=== PATIENT | female | born 1955 | race Caucasian/White ===

== ENCOUNTER 2020-12-06 10:55 | Outpatient (CLI) | payer MEDICARE, SELFPAY ==
--- NOTE | 2020-12-06 11:04 | MM_ITS ---
WS: [id number] BILATERAL DIGITAL SCREENING MAMMOGRAPHY WITH CAD CLINICAL INFORMATION: SCREENING HISTORY: Screening mammogram. No current complaints. COMPARISON: TECHNIQUE: Bilateral CC and MLO views. FINDINGS: The breasts are composed of heterogeneous fibroglandular density tissue, which can limit the detectio n of small underlying mass lesions. Stable punctate calcifications left breast. Stable nodular breast tissue central right breast. No suspicious mass, asymmetry, calcifications, or architectural distort ion. No evidence of malignancy. MM/[place] [id number] IMPRESSION: BI-RADS: 2-Benign FOLLOW UP: 1 Year Follow-up Recommend return to annual screening mammography.
== END 2020-12-06 10:56 | disposition home or self-care (01) ==
LOC: RADSHAW 11:02
PROVIDERS: Family Provider Family Medicine; PCP Family Medicine; Visit Provider Family Medicine
DX: Z12.31 Encounter for screening mammogram for malignant neoplasm of breast (principal)
CPT/HCPCS: 77067

== ENCOUNTER 2021-03-05 12:16 | Outpatient (RCR) | payer MEDICARE, SELFPAY | END 2021-03-21 23:59 | disposition home or self-care (01) | LOC: SPT 12:16 | PROVIDERS: Family Provider Family Medicine; PCP Family Medicine; Referring Provider Orthopaedic Surgery; Visit Provider Orthopaedic Surgery | DX: Z47.1 Aftercare following joint replacement surgery (principal); Z96.651 Presence of right artificial knee joint | CPT/HCPCS: 97110; 97161 ==

== ENCOUNTER 2021-03-22 06:00 | Outpatient (RCR) | payer MEDICARE, SELFPAY | END 2021-04-21 23:59 | disposition home or self-care (01) | LOC: SPT 06:00 | PROVIDERS: Family Provider Family Medicine; PCP Family Medicine; Referring Provider Orthopaedic Surgery; Visit Provider Orthopaedic Surgery | DX: Z47.1 Aftercare following joint replacement surgery (principal); Z96.651 Presence of right artificial knee joint | CPT/HCPCS: 97110 ==

== ENCOUNTER 2022-08-19 11:21 | Outpatient (CLI) | payer MEDICARE, SELFPAY ==
--- NOTE | 2022-08-19 11:29 | MM_ITS ---
WS: [id number] BILATERAL SCREENING DIGITAL TOMOSYNTHESIS MAMMOGRAM WITH CAD HISTORY: SCREENING COMPARISON: 12/06/2020, 11/19/2018 Bilateral CC and MLO views with tomosynthesis and synthetic mammography submitted. Computer aided det ection analyzed. Breast composition: The breasts are heterogeneously dense, which may obscure small masses. No suspici ous masses, microcalcifications or architectural distortion. Benign calcifications central LEFT breas t. MM/[place] [id number] IMPRESSION: BI-RADS: 2-Benign FOLLOW UP: 1 Year Follow-up
== END 2022-08-19 11:22 | disposition home or self-care (01) ==
LOC: RAD 11:22
PROVIDERS: PCP Family Medicine; Visit Provider Family Medicine
DX: Z12.31 Encounter for screening mammogram for malignant neoplasm of breast (principal)
CPT/HCPCS: 77063; 77067

== ENCOUNTER 2024-04-06 11:10 | Observation (INO) | payer MEDICARE, OTHER, SELFPAY ==
[2024-04-06] VITALS (9 sets, daily range): BP systolic 132–164; BP diastolic 66–74; PULSE 60–73; RESP 14–20; TEMP 36.4–36.8; O2SAT 91–96; BMI 35.2
--- NOTE | 2024-04-06 11:11 | XRR_ITS ---
PROCEDURE INFORMATION: Exam: XR Chest Exam date and time: 04/06/2024 11:27 AM Age: 68 years old Clinical indication: Pain; Angina pectoris; Additional info: Cp TECHNIQUE: Imaging protocol: Radiologic exam of the chest. Views: 1 view. COMPARISON: No relevant prior studies available. FINDINGS: Lungs: Unremarkable. No consolidation. Pleural spaces: Unremarkable. No pleural effusion. No pneumothorax. Heart/Mediastinum: Unremarkable. No cardiomegaly. Bones/joints: Unremarkable. XR/XR chest 1V portable [id number] IMPRESSION: No acute findings.
--- NOTE | 2024-04-06 11:22 | ED_ITS ---
HPI - Chest Pain 2 General: Chief Complaint: Chest Pain Stated Complaint: Cp Time Seen by Provider: 04/06/24 11:12 Source: patient Mode of arrival: ambulatory Limitations: no limitations History of Present Illness: 68-year-old female states that she start ed having chest pain 30 minutes ago. States it is a pressure pain in the center of her chest that radiated to her neck while she is at rest. States she has had intermittent pain since then and rates her pain currently a 3 out of 10 denies any worse improving factors. No known history of heart disease does have hypertension she is not a smoker. Denies any vomiting or diarrhea or abdominal pain or cough. Associated symptoms: Deny abdominal pain, dyspnea, fever(s), nausea or vomiting Review of Systems 2 Const: Denies: fever(s), chills, body aches or change in appetite ENMT: Denies: throat pain or dental pain Card: Reports: chest pain Resp: Denies: dyspnea GI: Denies: abdominal pain, nausea, vomiting or diarrhea Musc: Denies: neck pain or back pain Skin/Breast: Denies: rash Neuro: Denies: headache(s) Physical Exam 2 Const: COMMON NORMALS: patient oriented x3 and healthy appearing HENMT: COMMON NORMALS: normocephalic and atraumatic HEAD & SCALP: n ormocephalic and atraumatic Eye: COMMON NORMALS: Equal, round and reactive pupils present and EOMs intact bilaterally PUPIL: Yes Equal, round and reactive pupils present Neck/C-Spine: COMMON NORMALS: full ROM and supple Chest: COMMONS NORMALS: normal inspection of the chest and normal palpation of entire chest wall Resp: COMMON NORMALS: normal respiratory effort, No retractions, No use of accessory muscles and clear to auscultation bilaterally AUSCULTATION: clear to auscultation bilaterally Cardio: COMMON NORMALS: regular rate, regular rhythm and No murmurs present (Cardio) RATE: regular rate RHYTHM: regular rhythm GI: COMMON NORMALS: Normal to inspection, nondistended, normoactive bowel sounds present, Soft to palpation, non-tender and no masses PALPATION: Yes Soft to palpation Extremity: COMMON NORMALS: normal to inspection and full ROM Neuro: COMMON NORMALS: patient oriented x3, moves all extremities and no focal motor deficits Psych: COMMON NORMALS: mental status grossly normal, Normal thought process present and cooperative THOUGHT PROCESS: Normal thought process present Skin: COMMON NORMALS: no rashes or lesions noted and no wounds GENERAL SKIN EXAM: no rashes or lesions noted Course 2 Vital Signs: Vital signs: Vital Signs Temperature 97.6 F 04/06/24 11:17 Pulse Rate 64 04/06/24 11:31 Respiratory Rate 16 04/06/24 11:31 Blood Pressure 155/68 04/06/24 11:31 Pulse Oximetry 96 04/06/24 11:31 Oxygen Delivery Me thod Room Air 04/06/24 11:31 MDM - Chest Pain Medical Decision Making Patient presents here with chest pain EKG shows no ST elevation does have some Q waves does have an elevated troponin at 25 I spoke to the hospitalist will admit for ACS rule out she is currently pain-free. Medical Records I reviewed the patient's medical records. Lab Data I reviewed the patient's lab results. 04/06/24 11:28 04/06/24 11:28 Radiology Impressions Chest X-Ray 04/06/24 11:11 IMPRESSION: No acute findings. Laboratory Results WBC 9.46 10^3/uL (3.29-11.43) 04/06/24 11:28 RBC 4.22 10^6/uL (3.85-5.65) 04/06/24 11:28 Hgb 13.60 g/dL (11.27-16.99) 04/06/24 11:28 Hct 39.8 % (36-47) 04/06/24 11:28 MCV 94.3 fl (85-98) 04/06/24 11:28 MCH 32.2 pg (27-33) 04/06/24 11:28 MCHC 34.2 g/dL (30-55) 04/06/24 11:28 RDW 14.0 % (12.1-15.1) 04/06/24 11:28 Plt Count 189 10^3/cmm (157-399) 04/06/24 11:28 MPV 10.9 fL (7.4-10.4) H 04/06/24 11:28 Neut % (Auto) 67.9 % 04/06/24 11:28 Lymph % (Auto) 20.1 % 04/06/24 11:28 Pershing % (Auto) 9.9 % 04/06/24 11:28 Eos % (Auto) 1.4 % 04/06/24 11:28 Baso % (Auto) 0.3 % 04/06/24 11:28 Neut # (Auto) 6.42 10^3/uL (1.8-7.7) 04/06/24 11:28 Lymph # (Auto) 1.9 10^3/uL (0.8-4.8) 04/06/24 11:28 Pershing # (Auto) 0.9 10^3/uL (0.2-0.9) 04/06/24 11:28 Eos # (Auto) 0.1 10^3/uL (0.0-0.8) 04/06/24 11:28 Baso # (Auto) 0.0 10^3/uL (0.0-0.1) 04/06/24 11:28 Nucleated RBC % (auto) 0 % 04/06/24 11:28 Nucleated RBCs # 0.0 /100WBC 04/06/24 11:28 PT 12.10 SECONDS (12.1-14.9) 04/06/24 11:28 INR 0.87 (0.8-1.2) 04/06/24 11:28 D-Dimer 0.39 ug/mLFEU (0-0.59) 04/06/24 11:28 Sodium 135 mmol/L (136-145) L 04/06/24 11:28 Potassium 3.6 mmol/L (3.5-5.1) 04/06/24 11:28 Chloride 99 mmol/L (98-107) 04/06/24 11:28 Carbon Dioxide 22 mmol/L (22-29) 04/06/24 11:28 Anion Gap 17.6 (5-19) 04/06/24 11:28 BUN 32 mg/dL (8-23) H 04/06/24 11:28 Creatinine 1.0 mg/dL (0.5-0.9) H 04/06/24 11:28 GFR Calculation 54.8 mL/min (90-130) L 04/06/24 11:28 Glucose 104 mg/dL (65-115) 04/06/24 11:28 Calculated Osmolality 287 mOsm/kg (285-295) 04/06/24 11:28 Calcium 8.7 mg/dL (8.5-10.5) 04/06/24 11:28 Total Bilirubin 0.4 mg/dL (0.15-1.2) 04/06/24 11:28 AST 22 U/L (0-32) 04/06/24 11:28 ALT 32 U/L (0-33) 04/06/24 11:28 Alkaline Phosphatase 59 U/L (35-105) 04/06/24 11:28 Troponin T Baseline 25 ng/L (0-10) H 04/06/24 11:28 Total Protein 6.5 g/dL (6.6-8.7) L 04/06/24 11:28 Albumin 3.8 g/dL (3.5-5.2) 04/06/24 11:28 Globulin 2.7 g/dL (1.3-4.6) 04/06/24 11:28 Lipase 19 U/L (13-60) 04/06/24 11:28 All radiology interpretation(s) finalized by discharge EKG Data EKG 1: I personally reviewed and interpreted this EKG as follows: EKG interpretation date: 04/06/24 EKG interpretation time: 11:15 Interpretation: nsr hr [address] elevat t wave inversion v1 qrs 105 qtc 430 Discharge Plan Discharge Condition: Stable Referrals: Becka Lama MD [Primary Care Provider] - Coding Level of Care Code ED Hand Shaker for Chg Mario
--- NOTE | 2024-04-06 11:35 | ECG_ITS ---
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 Measurements Intervals [place] Rate: 61 P: 47 LA: 205 QRS: -36 QRSD: 113 T: 44 QT: 448 QTc: 455 Interpretive Statements SINUS RHYTHM LEFT AXIS DEVIATION [QRS AXIS < -30] ANTEROSEPTAL MYOCARDIAL INFARCTION , OF INDETERMINATE AGE [40+ ms Q WAVE IN V1-V4] No previous ECG available for comparison Electronically Signed On 04-06-2024 21:28:57 CDT by Jessica Middleton M.D. [id number]
[2024-04-06 11:42] LABS: Basophils % 0.3 %; Eosinophils # 0.1 10^3/uL (0.0-0.8); Eosinophils % 1.4 %; Hematocrit 39.8 % (36-47); Lymphocytes # 1.9 10^3/uL (0.8-4.8); Lymphocytes % 20.1 %; Mean Corpuscular HGB Conc 34.2 g/dL (30-55); Mean Corpuscular Hemoglobin 32.2 pg (27-33); Mean Corpuscular Volume 94.3 fl (85-98); Mean Platelet Volume 10.9 fL (7.4-10.4); Monocytes # 0.9 10^3/uL (0.2-0.9); Monocytes % 9.9 %; Neutrophils # 6.42 10^3/uL (1.8-7.7); Neutrophils % 67.9 %; Nucleated Red Blood Cells % 0 %; Platelet Count 189 10^3/cmm (157-399); Red Blood Count 4.22 10^6/uL (3.85-5.65); White Blood Count 9.46 10^3/uL (3.29-11.43)
[2024-04-06] MEDS: aspirin 81 mg Chew Tablet 324 MG PO (11:43)
[2024-04-06 12:01] LABS: INR 0.87 (0.8-1.2)
[2024-04-06 12:03] LABS: Alanine Aminotransferase 32 U/L (0-33); Albumin Level 3.8 g/dL (3.5-5.2); Alkaline Phosphatase 59 U/L (35-105); Anion Gap 17.6 (5-19); Aspartate Amino Transferase 22 U/L (0-32); Blood Urea Nitrogen 32 mg/dL (8-23); Calcium 8.7 mg/dL (8.5-10.5); Carbon Dioxide 22 mmol/L (22-29); Chloride 99 mmol/L (98-107); Creatinine Clr Calc Pharmacy 57.8591; D Dimer 0.39 ug/mLFEU (0-0.59); Globulin 2.7 g/dL (1.3-4.6); Glomerular Filtration Rate 54.8 mL/min (90-130); Glucose 104 mg/dL (65-115); Lipase 19 U/L (13-60); Osmolality Calculated 287 mOsm/kg (285-295); Potassium 3.6 mmol/L (3.5-5.1); Sodium 135 mmol/L (136-145); Total Bilirubin 0.4 mg/dL (0.15-1.2); Total Protein 6.5 g/dL (6.6-8.7)
[2024-04-06 12:05] LABS: Troponin(5th) Baseline 25 ng/L (0-10)
--- NOTE | 2024-04-06 12:49 | P.HP_ITS ---
Providers/Chief Complaint 2 Primary Care Provider: Becka Lama MD Chief Complaint: Cp History of Present Illness Pleasant 68-year-old lady with history of hypertension on amlodipine and losartan, had an episode of chest pain about 10 years ago but otherwise denies cardiac history in herself, but does have cardiac history in her parents both home health and bypass surgery was done in the 70s, presented to the ER after an episode of chest pain lasting about 2 hours earlier today, she was at rest during that time. Feels she could not catch a deep breath. Denies cough or shortness of breath. Denies pain with movement or palpation. She is currently free of chest pain. In the ER she is found to have Q waves in V1 and V2. Baseline troponin is 25. Review of Systems 2 Const: Denies: fever(s), chills, body aches or malaise ENMT: Denies: throat pain Card: Reports: chest pain; Denies: edema, pre-syncope or dyspnea on exertion Resp: Denies: productive cough, change in phlegm color or hemoptysis GI: Denies: abdominal pain, nausea, vomiting, diarrhea, constipation, hematochezia or melena : Denies: flank pain, urinary frequency or hematuria Musc: Denies: back pain, joint swelling or joint redness Skin/Breast: Denies: rash or new lesions Neuro: Denies: headache(s), numbness in extremities, weakness in extremities, dizziness, confusion or seizure-like activity Medications/Allergies Home Medications Medication Instructions Recorded Confirmed Last Taken Type amlodipine 5 mg tablet 5 mg PO DAILY 04/06/24 04/06/24 04/06/24 History losartan 100 1 tab PO DAILY 04/06/24 04/06/24 04/06/24 History mg-hydrochlorothiazide 25 mg tablet Allergies Allergy/AdvReac Type Severity Reaction Status Date / Time No Known Allergies Allergy Verified 04/06/24 11:23 PFSH Acute 2 PFSH: Medical History (Updated 04/06/24 @ 15:42 by Claude Villafuerte MD) HTN (hypertension) Family History (Updated 04/06/24 @ 14:18 by Claude Villafuerte MD) Father Heart disease Mother Heart disease Social History (Updated 04/06/24 @ 14:18 by Claude Villafuerte MD) Smoking and tobacco/nicotine status: never used tobacco/nicotine Alcohol intake: current Alcohol intake frequency: 0-2 Drinks per Day Alcohol type: wine Substance/Drug Use: never Vitals/I&O/Wt Last Vital Signs Temp 97.6 F 04/06/24 11:17 Pulse 63 04/06/24 12:23 Resp 17 04/06/24 12:23 BP 162/74 04/06/24 12:23 Pulse Ox 94 04/06/24 12:23 O2 Del Method Room Air 04/06/24 12:23 Weight last 48 hrs Weight 92.986 kg Physical Exam 2 Const: COMMON NORMALS: patient oriented x3 and alert GENERAL APPEARANCE: c ooperative ORIENTATION/CONSCIOUSNESS: Yes awake HENMT: COMMON NORMALS: oropharynx normal Neck/C-Spine: COMMON NORMALS: no JVD Resp: COMMON NORMALS: normal respiratory effort and clear to auscultation bilaterally AUSCULTATION: clear to auscultation bilaterally Cardio: COMMON NORMALS: no JVD, regular rhythm, S1 normal heart sound present, S2 normal heart sound present and No murmurs present (Cardio) RHYTHM: regular rhythm HEART SOUNDS: S1 normal heart sound present and S2 normal heart sound present GI: COMMON NORMALS: Normal to inspection, nondistended, normoactive bowel sounds present, Soft to palpation and non-tender PALPATION: Yes Soft to palpation Extremity: COMMON NORMALS: no joint enlargement and no pedal edema Neuro: COMMON NORMALS: patient oriented x3 and moves all extremities S ENSORIUM/ORIENTATION: Yes alert Skin: COMMON NORMALS: no rashes or lesions noted GENERAL SKIN EXAM: no rashes or lesions noted Data 04/06/24 11:28 04/06/24 11:28 A&P Assessment and plan (1) Chest pain: Reviewed vitals, CBC, CMP, troponin, EKG, on my interpretation with Q waves in V1 and V2, reviewed ER note, discussed with ER provider. Discussed with patient and her , she is currently pain-free, but did have pain for about 2 hours, central radiating up to her neck, although it was at rest and did have some discomfort with deep breath. Troponin with mild elevation at 2.5 times upper normal limit. Chest x-ray is unremarkable. D-dimer unremarkable. Somewhat atypical chest pain but does have risk factors of coronary disease including hypertension, age, obesity, as well as first-degree relatives with both parents having bypass surgery. Heart score is 6. Assess for possible unstable angina. Complete troponin EKG series, monitor on telemetry for possible arrhythmia as a reason of her symptoms. Received anticoagulation with Lovenox, monitor for risk of bleeding, continuing aspirin 325 mg daily. Reassess blood counts. Further assessment with echocardiogram. Additionally discussed with her assessment with stress testing in the morning unless chest pain returns and persists or is worsening. Obtain lipid profile. Plan HTN: Monitor blood pressures. Continue amlodipine, losartan/HCTZ. Obesity: Follow-up with primary provider with regards to weight loss options. Attestations 2 Medical Necessity Statement*: Place in observation for additional assessment and management after episode of chest pain, possible unstable angina. With abnormal EKG, risk factors of coronary disease. Diagnoses Chest pain R07.9
[2024-04-06] MEDS: enoxaparin 100 mg/mL Syringe 90 MG SUBCUT (12:57)
--- NOTE | 2024-04-06 13:11 | ECG_ITS ---
[facility] Test Date: 2024-04-06 Pat Name: Natasha Sanchez Department: Room: Gender: Female Switcher: : 1955 Requested By: Marcelino Whitehead Order Number: [id number] Lino MD: Jessica Middleton M.D. Measurements Intervals [place] Rate: 61 P: 44 IN: 205 QRS: -42 QRSD: 103 T: 43 QT: 434 QTc: 439 Interpretive Statements SINUS RHYTHM LEFT AXIS DEVIATION [QRS AXIS < -30] MINIMAL VOLTAGE CRITERIA FOR LVH, CONSIDER NORMAL VARIANT [MEETS CRITERIA IN ONE OF: R(aVL), S(V1), R(V5), R(V5/V6)+S(V1)] ANTEROSEPTAL MYOCARDIAL INFARCTION , OF INDETERMINATE AGE [40+ ms Q WAVE IN V1-V4] Compared to ECG 04/06/2024 11:35:34 No significant changes Electronically Signed On 04-06-2024 21:38:05 CDT by Jessica Middleton M.D. [id number]
[2024-04-06 13:35] LABS: Troponin 5 2HR 23.42 ng/L (0-10); Troponin 5 2HR Delta -1.58 ABS# (0-10)
--- NOTE | 2024-04-06 13:48 | PC.NURSE ---
assumed care of patient at 1300 from Odalis Eason. Rounding with patient and she reports that she does not currently have any chest pain. Changed into a gown and allergy band placed. Pt amb to bathroom without difficulties.
[2024-04-06 15:39] LABS: Chol HDL Ratio 2.24 mg/dL (0.0-4.40); Cholesterol 186 mg/dL (0-200); HDL Cholesterol 83 mg/dL (60-100); LDL Cholesterol Calculated 85 mg/dL (50-129); Triglycerides 92 mg/dL (0-150); VLDL Cholestrol Calculation 18 mg/dL (0-30)
--- NOTE | 2024-04-06 15:44 | USCV_ITS ---
Natasha Sanchez Age: 68 Gender: F : 1955 Exam Date: 04/06/2024 17:03 Ordering Phys: Claude Villafuerte MD Technologist: CT Exam Location: [facility] [place] Indication: cp BP: / HR: Rhythm: Sinus Technical Quality: Adequate MEASUREMENTS (Male / Female) Normal Values FINDINGS Left Ventricle Normal left ventricular size, systolic function and wall thickness, with no regional wall motion abnormalities. Normal left ventricular wall thickness. Normal diastolic filling pattern. Left ventricular ejection fraction is estimated at 70 %. Right Ventricle The right ventricle is normal in size and function. Right Atrium The right atrium is normal in size. Left Atrium The left atrium is normal in size. Mitral Valve Structurally normal mitral valve without significant stenosis or prolapse. There is no mitral regurgitation. Aortic Valve Structurally normal aortic valve without significant sclerosis or stenosis. There is no aortic regurgitation. Tricuspid Valve Structurally normal tricuspid valve without significant stenosis or regurgitation. Pulmonic Valve Structurally normal pulmonic valve without significant stenosis. Mild pulmonary valve regurgitation. Pericardium Normal pericardium without effusion. Aorta Normal ascending aorta dimension. IVC The inferior vena cava appears normal. CONCLUSIONS Normal transthoracic echocardiogram. There are no prior echocardiogram studies to compare. Dr. Michael Baez MD (Electronically Signed) Final Date: 07 April 2024 08:18 S
--- NOTE | 2024-04-06 17:46 | ECG_ITS ---
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 Measurements Intervals [place] Rate: 64 P: 29 OR: 203 QRS: -43 QRSD: 100 T: 5 QT: 433 QTc: 447 Interpretive Statements SINUS RHYTHM LEFT AXIS DEVIATION [QRS AXIS < -30] MODERATE VOLTAGE CRITERIA FOR LVH, CONSIDER NORMAL VARIANT [MEETS CRITERIA IN ONE OF: R(aVL), S(V1), R(V5), R(V5/V6)+S(V1)] POSSIBLE ANTEROSEPTAL MYOCARDIAL INFARCTION , OF INDETERMINATE AGE [30 ms Q WAVE IN V1-V4] Compared to ECG 04/06/2024 13:11:20 No significant changes Electronically Signed On 04-06-2024 21:39:44 CDT by Jessica Middleton M.D. [id number]
[2024-04-06 18:28] LABS: Troponin 5 6HR 22.38 ng/L (0-10)
[2024-04-06 18:29] LABS: Troponin 5 6HR Delta -2.62 ng/L (0-12)
[2024-04-07] VITALS: BP 131/66; PULSE 68; RESP 15; TEMP 36.9; O2SAT 90
[2024-04-07 03:05] LABS: Basophils % 0.3 %; Eosinophils # 0.1 10^3/uL (0.0-0.8); Eosinophils % 0.8 %; Hematocrit 40.6 % (36-47); Lymphocytes % 27.4 %; Mean Corpuscular HGB Conc 33.5 g/dL (30-55); Mean Corpuscular Hemoglobin 32.1 pg (27-33); Mean Corpuscular Volume 95.8 fl (85-98); Mean Platelet Volume 10.7 fL (7.4-10.4); Monocytes # 0.6 10^3/uL (0.2-0.9); Neutrophils # 4.59 10^3/uL (1.8-7.7); Neutrophils % 63.1 %; Nucleated Red Blood Cells % 0 %; Platelet Count 182 10^3/cmm (157-399); Red Blood Count 4.24 10^6/uL (3.85-5.65); White Blood Count 7.27 10^3/uL (3.29-11.43)
[2024-04-07 03:28] LABS: Blood Urea Nitrogen 26 mg/dL (8-23); Calcium 9.1 mg/dL (8.5-10.5); Carbon Dioxide 24 mmol/L (22-29); Chloride 104 mmol/L (98-107); Glomerular Filtration Rate 54.8 mL/min (90-130); Glucose 118 mg/dL (65-115); Osmolality Calculated 296 mOsm/kg (285-295); Sodium 140 mmol/L (136-145)
[2024-04-07 04:00] VITALS: BP 130/65; PULSE 65; RESP 15; TEMP 36.6; O2SAT 92
[2024-04-07 07:32] VITALS: BP 130/68; PULSE 67; RESP 19; TEMP 36.6; O2SAT 92
[2024-04-07 08:38] VITALS: BP 136/69
[2024-04-07] MEDS: losartan 50 mg Tablet 100 MG PO (08:38)
[2024-04-07] MEDS: aspirin 325 mg Tablet PO (08:38)
[2024-04-07] MEDS: amlodipine 5 mg Tablet PO (08:38)
[2024-04-07] MEDS: hydroCHLOROthiazide 25 mg Tablet PO (08:38)
--- NOTE | 2024-04-07 09:33 | PC.CHAP ---
Pastoral Care Encounter/Spiritual Assessment Type of Contact [] Declined foundation stage teacher visit [] Patient/Family/Request visit [] Outpatient visit [] Follow-up visit [] Physician referral [] Code/Alert [x] Routine visit [] Staff referral [] Actively dying [] Patient sleeping [] Family support [] [] Out of room [] Palliative care [] [] Receiving care in room [] Pre-surgical visit [] Trauma [] Long length of stay [] ICU visit [] Other: Relational/Emotional Strength [x] Patient feels connected with others/family/visitors/staff [] Distress [] Loneliness/isolation [] Abandonment Spirituality of Patient [x] Person of Xenia [] Attends Anabaptism of their Xenia [x] Believes in Prayer [] Reads Bible or Hindu materials [] There are Spiritual issues to be addressed Coverer Interventions [x] Prayer [x] Active listening [] Non-anxious presence [x] Spiritual/emotional support [] Crisis/trauma care [] Spiritual counseling [] Bereavement support [] Provided bereavement packet [] Provided Bible/devotional materials [] Provided toy/stuffed animal, coloring book to patient or family member [] Provided Communion [] Anointing/[place] [] Salvation [x] Completed spiritual assessment [] Other: Impact on Illness or Injury [] Angry [] Fearful [] Anxious [] Often cries [] Exhaustion [] Unable to work [] Unable to attend religion [] Unable to walk/stand [] Unable to read [] Unable to drive [] Unable to eat/drink [] Unable to sleep [] Unable to be with family [] Patient intubated [] Other: Summary Time spent with patient 5 min
[2024-04-07 11:26] VITALS: BP 129/77; PULSE 69; RESP 22; O2SAT 90
--- NOTE | 2024-04-07 11:52 | P.DS_ITS ---
Discharge Providers Date of Admission: 04/06/24 14:28 Date of Discharge: April 07, 2024 Attending Provider at Admission: Claude Villafuerte Attending Provider at Discharge: Claude Villafuerte Primary Care Provider: Becka Lama MD Diagnoses at Discharge Discharge Diagnosis (1) Chest pain: Status: Acute Reason for Visit Reason for Visit: Cp Hospital Course Hospital Course 68-year-old lady with history of hypertension, obesity, family history of coronary disease presented after an episode of 2 hours of central chest pain radiating to her neck earlier yesterday while at rest. Her chest x-ray was unremarkable, D-dimer normal, she did not have recurrence while monitoring in the hospital with cardiac telemetry, underwent echocardiogram which was normal. She was started on aspirin, statin, he is feeling well today. Could not have her stress test done today, as she is doing well she prefers to return for it as outpatient. Stress test is requested. Please follow-up. Continue to optimize cardiovascular risk factors, hypertension, assist her with weight control. Physical Exam Const: COMMON NORMALS: patient oriented x3 and alert GENERAL APPEARANCE: cooperative ORIENTATION/CONSCIOUSNESS: Yes awake HENMT: COMMON NORMALS: oropharynx normal Neck/C-Spine: COMMON NORMALS: no JVD Resp: COMMON NORMALS: normal respiratory effort and clear to auscultation bilaterally AUSCULTATION: clear to auscultation bilaterally Cardio: COMMON NORMALS: no JVD, regular rhythm, S1 normal heart sound present, S2 normal heart sound present and No murmurs present (Cardio) RHYTHM: regular rhythm HEART SOUNDS: S1 normal heart sound present and S2 normal heart sound present GI: COMMON NORMALS: Normal to inspection, nondistended, normoactive bowel sounds present, Soft to palpation and non-tender PALPATION: Yes Soft to palpation Extremity: COMMON NORMALS: no joint enlargement and no pedal edema Neuro: COMMON NORMALS: patient oriented x3 and moves all extremities SENSORIUM/ORIENTATION: Yes alert Skin: COMMON NORMALS: no rashes or lesions noted GENERAL SKIN EXAM: no rashes or lesions noted Discharge Data Studies Completed and Pending Completed Studies During Hospitalization Category Date Time Status XR chest 1V portable [id number] Stat Exams 04/06/24 11:11 Completed CV. echo complete* [id number] Routine Ultrasound 04/06/24 15:44 Completed Pending at discharge Category Date Time Status Cardiac Stress Test MIBI [Sestamibi Stress Test Request Exams 04/07/24 09:28 Ordered ] Routine Basic Metabolic Panel AM LABS Lab 04/08/24 04:00 Ordered Basic Metabolic Panel AM LABS Lab 04/09/24 04:00 Ordered Complete Blood Count w/Auto AM LABS Lab 04/08/24 04:00 Ordered Complete Blood Count w/Auto AM LABS Lab 04/09/24 04:00 Ordered NM joe perf SPECT r/s* [id number] Routine Nuc Med 04/08/24 09:28 Ordered Radiology Impressions Chest X-Ray 04/06/24 11:11 IMPRESSION: No acute findings. Laboratory Results WBC 7.27 10^3/uL (3.29-11.43) 04/07/24 02:46 RBC 4.24 10^6/uL (3.85-5.65) 04/07/24 02:46 Hgb 13.60 g/dL (11.27-16.99) 04/07/24 02:46 Hct 40.6 % (36-47) 04/07/24 02:46 MCV 95.8 fl (85-98) 04/07/24 02:46 MCH 32.1 pg (27-33) 04/07/24 02:46 MCHC 33.5 g/dL (30-55) 04/07/24 02:46 RDW 14.0 % (12.1-15.1) 04/07/24 02:46 Plt Count 182 10^3/cmm (157-399) 04/07/24 02:46 MPV 10.7 fL (7.4-10.4) H 04/07/24 02:46 Neut % (Auto) 63.1 % 04/07/24 02:46 Lymph % (Auto) 27.4 % 04/07/24 02:46 [place] % (Auto) 8.0 % 04/07/24 02:46 Eos % (Auto) 0.8 % 04/07/24 02:46 Baso % (Auto) 0.3 % 04/07/24 02:46 Neut # (Auto) 4.59 10^3/uL (1.8-7.7) 04/07/24 02:46 Lymph # (Auto) 2.0 10^3/uL (0.8-4.8) 04/07/24 02:46 [place] # (Auto) 0.6 10^3/uL (0.2-0.9) 04/07/24 02:46 Eos # (Auto) 0.1 10^3/uL (0.0-0.8) 04/07/24 02:46 Baso # (Auto) 0.0 10^3/uL (0.0-0.1) 04/07/24 02:46 Nucleated RBC % (auto) 0 % 04/07/24 02:46 Nucleated RBCs # 0.0 /100WBC 04/07/24 02:46 PT 12.10 SECONDS (12.1-14.9) 04/06/24 11:28 INR 0.87 (0.8-1.2) 04/06/24 11:28 D-Dimer 0.39 ug/mLFEU (0-0.59) 04/06/24 11:28 Sodium 140 mmol/L (136-145) 04/07/24 02:46 Potassium 4.0 mmol/L (3.5-5.1) 04/07/24 02:46 Chloride 104 mmol/L (98-107) 04/07/24 02:46 Carbon Dioxide 24 mmol/L (22-29) 04/07/24 02:46 Anion Gap 16.0 (5-19) 04/07/24 02:46 BUN 26 mg/dL (8-23) H 04/07/24 02:46 Creatinine 1.0 mg/dL (0.5-0.9) H 04/07/24 02:46 GFR Calculation 54.8 mL/min (90-130) L 04/07/24 02:46 Glucose 118 mg/dL (65-115) H 04/07/24 02:46 Calculated Osmolality 296 mOsm/kg (285-295) H 04/07/24 02:46 Calcium 9.1 mg/dL (8.5-10.5) 04/07/24 02:46 Total Bilirubin 0.4 mg/dL (0.15-1.2) 04/06/24 11:28 AST 22 U/L (0-32) 04/06/24 11:28 ALT 32 U/L (0-33) 04/06/24 11:28 Alkaline Phosphatase 59 U/L (35-105) 04/06/24 11:28 Troponin T Baseline 25 ng/L (0-10) H 04/06/24 11:28 Troponin T 120 Minute 23.42 ng/L (0-10) H 04/06/24 13:00 Delta Troponin T -1.58 ABS# (0-10) L 04/06/24 13:00 Troponin T Hi Sens 6Hr 22.38 ng/L (0-10) H 04/06/24 17:42 Troponin T Hi Sens 6Hr Delta -2.62 ng/L (0-12) L 04/06/24 17:42 Total Protein 6.5 g/dL (6.6-8.7) L 04/06/24 11:28 Albumin 3.8 g/dL (3.5-5.2) 04/06/24 11:28 Globulin 2.7 g/dL (1.3-4.6) 04/06/24 11:28 Triglycerides 92 mg/dL (0-150) 04/06/24 11:28 Cholesterol 186 mg/dL (0-200) 04/06/24 11:28 LDL Cholesterol, Calc 85 mg/dL (50-129) 04/06/24 11:28 Total VLDL Cholesterol 18 mg/dL (0-30) 04/06/24 11:28 HDL Cholesterol 83 mg/dL (60-100) 04/06/24 11:28 Cholesterol/HDL Ratio 2.24 mg/dL (0.0-4.40) 04/06/24 11:28 Lipase 19 U/L (13-60) 04/06/24 11:28 Vitals Last Vital Signs Temp 97.8 F 04/07/24 07:32 Pulse 69 04/07/24 11:26 Resp 22 H 04/07/24 11:26 BP 129/77 04/07/24 11:26 Pulse Ox 90 04/07/24 11:26 O2 Del Method Room Air 04/07/24 11:26 Discharge Plan Discharge Patient Disposition: Home Condition: Stable Prescriptions: New aspirin 81 mg capsule 81 mg PO DAILY Qty: 90 0RF atorvastatin 40 mg tablet 40 mg PO QPM Qty: 90 0RF Continued amlodipine 5 mg tablet 5 mg PO DAILY losartan-hydrochlorothiazide 100-25 mg tablet 1 tab PO DAILY Discharge Orders: Discharge Order (Routine); Ordered 04/07/24 Ordered By: Claude Villafuerte Other Ambulatory Orders: Sestamibi Stress Test Request (Routine) Timeframe: 1 Day Facility: [facility] - Location: Cardiac Diagnostic Laboratory Ordered By: Claude Villafuerte Referrals: Becka Lama MD [Primary Care Provider] - 4-7 days Discharge Diet: Cardiac Activity Restrictions/Additional Instructions: Follow-up with your primary doctor for reassessment after episode of chest pain, Q waves in V1, V2, suspected coronary disease. Please complete stress test, discuss results with your primary provider. You are started on aspirin and cholesterol medication, watch out for any bleeding with aspirin, avoid injury, watch for any muscle pain or weakness which could be a rare side effect of atorvastatin, follow-up with your primary doctor. Seek medical attention in case of any recurrence or new concerning symptoms. Discharge Attestations Time Spent in Discharge Care*: greater than 30 min Quality Metrics Clinical Quality Measures [ No reported AMI, CVA or VTE this stay] Coding Level of Care Code 39088 Total time (in minutes) for Discharge: 40 Diagnoses Chest pain R07.9
[2024-04-07 12:02] VITALS: BP 129/77; PULSE 69; RESP 22; O2SAT 90
== END 2024-04-07 12:31 | disposition home or self-care (01) ==
LOC: ER 12:23 → CSU 14:28
PROVIDERS: Admitting Provider Internal Medicine; Emergency Provider Emergency Medicine; PCP Family Medicine; Visit Provider Internal Medicine
DX: R07.9 Chest pain, unspecified (principal); I10 Essential (primary) hypertension; E66.9 Obesity, unspecified; Z68.35 Body mass index [BMI] 35.0-35.9, adult; Z82.49 Family history of ischemic heart disease and other diseases of the circulatory system
CPT/HCPCS: 36415; 71045; 80048; 80053; 80061; 83690; 84484; 85025; 85378; 85610; 93005; 93306; 96372; 99285; G0378; J1650

== ENCOUNTER 2024-05-25 08:27 | Outpatient (CLI) | payer MEDICARE, OTHER, SELFPAY ==
[2024-05-25 08:41] VITALS: BMI 34.3
--- NOTE | 2024-05-25 08:41 | ECG_ITS ---
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 Interpretive Statements NAME OF STUDY: LEXISCAN SESTAMIBI STRESS TEST INDICATION: [Chest Pain, CAD risk, ] Procedure: At the baseline, the blood pressure was 129/59 mmHg with a heart rate of 61 bpm. The electrocardiogram showed normal sinus rhythm, normal axis with normal ST and T's. The Lexiscan was infused over a period of 20 seconds. A total of 0.4 mg of Lexiscan was infused. The stress phase was continued for a total of 5 minutes. Heart rate was at the end of stress phase was 76 bpm and a blood pressure of 121/49 mmHg. The EKG at the peak infusion revealed normal sinus rhythm with no significant ST-T wave changes. Sestamibi was injected 20 seconds after the Lexiscan infusion. Blood pressure at the end of recovery phase was 112/50 mmHg with a heart rate of 73bpm. Conclusion: 1. Normal EKG response to Lexiscan infusion 2. No Lexiscan induced chest pain or cardiac arrhythmia. 3. Normal blood pressure and heart rate response. 4. Sestamibi/sestamibi perfusion scan pending; see separate report. Electronically Signed On 05-26-2024 11:57:16 CDT by Darci Kohli M.D. [email or web address]
--- NOTE | 2024-05-25 08:42 | NMCV_ITS ---
NM joe perf SPECT r/s* [id number] Natasha Sanchez Age: 69 Gender: F : 1955 Exam Date: 05/25/2024 08:42 Ordering Phys: Claude Villafuerte MD Technologist: SERVANDO Siddiqi Exam Location: [facility] Indications: CP, CAD STRESS TEST [facility] IMAGE PROTOCOL Rest/Stress 1 Lexiscan Day Radiopharmaceutical Dose (mCi) Administration Site Administered by Rest: Tc-99m 11.0 IV SERVANDO Siddiqi Sestamibi Stress:Tc-99m 32.8 IV SERVANDO Siddiqi Sestamibrenda Rest: 25-May-2024 60 Discovery 630 Stress: 25-May-2024 30 Discovery 630 0.4mg Lexiscan. Images obtained in supine and prone position. SPECT RESULTS Technical Quality: Good Raw Data Analysis: Breast attenuation Image Corrections: No attenuation or motion correction applied Summed Stress Score: 8 Summed Rest Score: 8 Summed Difference Score: 0 PERFUSION FINDINGS Medium sized areas of fixed perfusion defect seen in apical, apical septal and apical lateral gutiérrez. 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 No evidence of ischemia. FUNCTIONAL RESULTS (calculated via Gated SPECT) Stress Image LV EF (%): 83 Stress EDV (mL):80 TID: 1.14 Stress ESV (mL):14 FUNCTIONAL FINDINGS: There is normal left ventricular systolic function. IMPRESSIONS 1. Medium sized area of prior infarct seen in the LAD and left circumflex artery territories. 2. LV systolic function is normal Darci Kohli MD (Electronically Signed) Final Date: 25 May 2024 12:10 S
[2024-05-25] MEDS: regadenoson 0.4 Mg/5 ml Syringe IVP (10:30)
[2024-05-25 10:39] VITALS: BP 112/50; PULSE 74
== END 2024-05-25 08:28 | disposition home or self-care (01) ==
PROVIDERS: PCP Family Medicine; Visit Provider Internal Medicine
DX: R07.9 Chest pain, unspecified (principal); R94.39 Abnormal result of other cardiovascular function study
CPT/HCPCS: 36415; 78452; 93017; 96374; A9500; J2785

== ENCOUNTER → 2024-06-24 11:45 | Outpatient (BNVA) | payer MEDICARE, OTHER, SELFPAY | PROVIDERS: PCP Family Medicine; Referring Provider Family Medicine; Visit Provider Internal Medicine Cardiovascular Disease | DX: I49.8 Other specified cardiac arrhythmias (principal); R07.9 Chest pain, unspecified; I21.9 Acute myocardial infarction, unspecified | CPT/HCPCS: 93005; 99204 ==

== ENCOUNTER 2024-11-20 06:30 | Outpatient (RCR) | payer MEDICARE, OTHER, SELFPAY | END 2024-12-20 23:59 | disposition home or self-care (01) | LOC: SPT 06:30 | PROVIDERS: PCP Family Medicine; Visit Provider Registered Nurse | DX: Z47.1 Aftercare following joint replacement surgery (principal); Z96.651 Presence of right artificial knee joint | CPT/HCPCS: 97110; 97150; 97161 ==

== ENCOUNTER 2024-12-21 05:00 | Outpatient (RCR) | payer MEDICARE, OTHER, SELFPAY | END 2025-01-05 11:28 | disposition home or self-care (01) | LOC: SPT 05:00 | PROVIDERS: PCP Family Medicine; Visit Provider Registered Nurse | DX: Z47.1 Aftercare following joint replacement surgery (principal); Z96.651 Presence of right artificial knee joint | CPT/HCPCS: 97110 ==

== ENCOUNTER → 2025-02-07 11:04 | Outpatient (BNVA) | payer MEDICARE, OTHER, SELFPAY | PROVIDERS: PCP Family Medicine; Visit Provider Internal Medicine Cardiovascular Disease | DX: R07.9 Chest pain, unspecified (principal); I10 Essential (primary) hypertension; E78.5 Hyperlipidemia, unspecified; M79.89 Other specified soft tissue disorders; I50.9 Heart failure, unspecified | CPT/HCPCS: 99214 ==

== ENCOUNTER 2025-02-28 16:20 | Outpatient (RCR) | payer MEDICARE, OTHER, SELFPAY | END 2025-03-21 23:59 | disposition home or self-care (01) | LOC: SPT 16:20 | PROVIDERS: Visit Provider Orthopaedic Surgery | DX: Z47.1 Aftercare following joint replacement surgery (principal); Z96.652 Presence of left artificial knee joint | CPT/HCPCS: 97110; 97161 ==

== ENCOUNTER 2025-03-22 05:00 | Outpatient (RCR) | payer MEDICARE, OTHER, SELFPAY | END 2025-04-21 23:59 | disposition home or self-care (01) | LOC: SPT 05:00 | PROVIDERS: Visit Provider Orthopaedic Surgery | DX: Z47.1 Aftercare following joint replacement surgery (principal); Z96.652 Presence of left artificial knee joint | CPT/HCPCS: 97110 ==

== ENCOUNTER 2025-04-22 05:00 | Outpatient (RCR) | payer MEDICARE, OTHER, SELFPAY | END 2025-05-12 13:47 | disposition home or self-care (01) | LOC: SPT 05:00 | PROVIDERS: PCP Family Medicine; Visit Provider Orthopaedic Surgery | DX: Z47.1 Aftercare following joint replacement surgery (principal); Z96.652 Presence of left artificial knee joint | CPT/HCPCS: 97110 ==

== ENCOUNTER → 2025-05-02 13:52 | Outpatient (BNVA) | payer MEDICARE, OTHER, SELFPAY | PROVIDERS: PCP Family Medicine; Visit Provider Family Medicine | DX: Z00.00 Encounter for general adult medical examination without abnormal findings (principal); I10 Essential (primary) hypertension; E78.5 Hyperlipidemia, unspecified | CPT/HCPCS: 80053; 80061; 85025 ==

== ENCOUNTER → 2025-05-10 12:37 | Outpatient (BNVA) | payer MEDICARE, OTHER, SELFPAY | PROVIDERS: PCP Family Medicine; Visit Provider Family Medicine | DX: D72.829 Elevated white blood cell count, unspecified (principal) | CPT/HCPCS: 85025 ==

== ENCOUNTER 2025-05-12 13:04 | Outpatient (CLI) | payer MEDICARE, OTHER, SELFPAY ==
--- NOTE | 2025-05-12 13:20 | MM_ITS ---
WS: [id number] BILATERAL SCREENING DIGITAL TOMOSYNTHESIS MAMMOGRAM WITH CAD HISTORY: routine screening for breast cancer COMPARISON: 08/19/2022, 12/06/2020, 11/19/2018 Bilateral CC and MLO views with tomosynthesis and synthetic mammography submitted. Computer aided detection analyzed. Breast composition: The breasts are heterogeneously dense, which may obscure small masses. No suspicious masses, microcalcifications or architectural distortion. Benign calcifications in each breast. MM/MM scr tomosynthesis [id number] IMPRESSION: BI-RADS: 2 - Benign FOLLOW UP: 1 Year Follow-up
--- NOTE | 2025-05-12 14:00 | XR_ITS ---
WS: [id number] DEXA (DUAL ENERGY X-RAY ABSORPTIOMETRY) Bone mineral density was performed using a Embrane machine. HISTORY: routine screening for osteoporosis COMPARISON: None available. Lumbar spine BMD (L1-L4): 1.105 g/cm2 T score: -0.6 Z score: 0.4 Total hip BMD: Left: 0.972 g/cm2. T score: -0.3 Z score: 0.8 Right: 0.952 g/cm2. T score: -0.4 Z score: 0.7 10 year probability of a major osteoporotic fracture is 10.0%. XR/XR DEXA axial skeleton* [id number] IMPRESSION: NORMAL BONE MINERAL DENSITY based upon the WHO classification for females.
== END 2025-05-12 13:05 | disposition home or self-care (01) ==
LOC: RAD 13:04
PROVIDERS: PCP Family Medicine; Visit Provider Family Medicine
DX: Z12.31 Encounter for screening mammogram for malignant neoplasm of breast (principal); R92.333 Mammographic heterogeneous density, bilateral breasts; Z13.820 Encounter for screening for osteoporosis; Z78.0 Asymptomatic menopausal state
CPT/HCPCS: 77063; 77067; 77080